=== PATIENT | male | born 1955 | race Two or more races ===

== ENCOUNTER → 2024-04-09 | Outpatient (CLI) | payer MEDICARE, OTHER ==
[2024-04-09] MEDS: REGADENOSON 0.4 MG/5 ML SYRG IV ONE ×2 (11:08)
--- NOTE | 2024-04-09 12:56 | DVHSR ---
APPROVED REPORT Exam: Nuclear Stress Test BMI: 0 Stress Test Details HR Max Heart Rate (APMHR): 151.562570 bpm Target HR (85% APMHR): 128.596372 bpm BP ECG Stress ECG Conclusion Review of the Perfusion images during stress demonstrated homogeneous radiotracer uptake throughout t he left ventricular myocardium. Left ventricular volumes are normal. Left ventricular systolic func tion is normal and is estimated at 71%. There is no significant transient ischemic dilatation. No g ated images are available to assess for wall motion. Impressions: Low risk nuclear myocardial perfusion scan with no evidence of ischemia or prior infarction. Normal left ventricular systolic function. NM EXAM: Myocardial Perfusion REST/STRESS Imaging Protocol: Rest Tc-99m/Stress Tc-99m 1 day Resting Data Rest SPECT myocardial perfusion imaging was performed in supine position 60 minutes following the int ravenous injection of 14.3 mCi of Tc-99m Sestamibi. Time of rest injection: 0950 Date: 04/09/2024 Time of rest imagin Date: 04/09/2024 Administration Route: IV Administration Site: Left Hand Pharmacologic Stress Pharmacologic stress test was performed by injecting Regadenoson 0.4 mg IV push followed by the intra venous injection of 32 mCi of Tc-99m Sestamibi. Time of stress injection: 1108 Date: 04/09/2024 Time of stress imagin Date: 04/09/2024 Administration Route: IV Administration Site: Left Hand Gated Stress SPECT was performed 60 minutes after stress injection. The images were gated to evaluate regional wall motion and calculate left ventricular ejection fracti on. Stress only was performed in the Supine position. Nuclear Conclusion ECG Findings: equivocal Clinical Findings: negative for ischemia Nuclear Findings: negative for ischemia Exercise Capacity: not assessed Left Ventricular Function: normal Risk Study: low Review of the Perfusion images during stress demonstrated homogeneous radiotracer uptake throughout t he left ventricular myocardium. Left ventricular volumes are normal. Left ventricular systolic func tion is normal and is estimated at 71%. There is no significant transient ischemic dilatation. No g ated images are available to assess for wall motion. Impressions: Low risk nuclear myocardial perfusion scan with no evidence of ischemia or prior infarction. Normal left ventricular systolic function.
== END | disposition home or self-care (01) ==
LOC: XYW 09:35
PROVIDERS: ATTEND Specialist
DX: I25.10 Atherosclerotic heart disease of native coronary artery without angina pectoris (principal); I10 Essential (primary) hypertension
CPT/HCPCS: 78452; 93017; A9500; J2785